=== PATIENT | male | born 2000 ===

== ENCOUNTER 2024-11-16 13:37 | Emergency (ER) | payer SELFPAY ==
[2024-11-16 13:43] VITALS: BP 141/92
--- NOTE | 2024-11-16 14:25 | ED.GENMED ---
History of Present Illness
General
Chief Complaint: Musculo-Skeletal Complaint
Source: patient
Exam Limitations: none
Time Seen by Provider: 11/16/24 14:06
Nursing documentation reviewed up to this point in time: agreed with
History of Present Illness
History of Present Illness:
Patient is a 24-year-old male who is [id number] who punched a wall with his right hand yesterday. He does complain of pain. He denies any other injuries.
Review of Systems
Review of Systems
Allergies reviewed?: Yes
All Other Systems: ROS reviewed and negative except as documented in HPI and ROS
Constitutional: Reports no symptoms
Musculoskeletal: Reports other (Right hand pain)
Skin: Reports no symptoms
Psychiatric: Reports no symptoms
Phy Exam
General Physical Exam
General Presentation: no apparent distress
General age: appears stated age
General Skin: warm and dry
General Habitus: normal
General Mental: alert
General Hydration: appears well hydrated
Neurological Exam
Neurological Exam: alert and oriented x3
Musculoskeletal Exam
Musculoskeletal Exam: other (Right upper extremity strong pulses patient with tenderness and swelling to distal fifth metacarpal carpal normal distal sensation normal cap refill)
Skin Exam
Skin Exam: normal color and warm/dry
Psychiatric Exam
Psychiatric Exam: normal mood/affect
Course
Orders/Labs/Results
Orders:
Orders
11/16/24 13:46
Hand, Right 3 View [CR Hand - Right Min 3 Views] Urgent
Comment:
Reason For Exam: pain, swelling, trauma
11/16/24 14:31
Sling Right-Treatment ONCE
Splints/Slings/Crut- Treatment ONCE
Location: Right
Type of Splint: Ulnar Gutter
11/16/24 14:39
Vital Signs- Treatment ONCE
Frequency: Once
Vital Signs
Initial and Last Documented VS:
Initial Vital Signs
Temp Pulse Resp BP Pulse Ox
98.1 F 61 16 141/92 99
11/16/24 13:43 11/16/24 13:43 11/16/24 13:43 11/16/24 13:43 11/16/24 13:43
Last Documented Vital Signs
Temp Pulse Resp BP Pulse Ox
98.1 F 61 16 141/92 99
11/16/24 13:43 11/16/24 13:43 11/16/24 13:43 11/16/24 13:43 11/16/24 13:43
Procedures
Splint Check
Splint checked by provider?: Yes
Circulation/Movement/Sensation post splint application: brisk cap refill and full sensation
MDM/Problems Addressed
Differential Diagnosis Includes:
Not limited to contusion, fracture
MDM/Problems Addressed:
Symptoms consistent with boxer's fracture. Patient has a normal neurovascular exam splinted with a gutter splint will DC with Ortho follow-up. Will DC with Motrin Tylenol.
*Radiology
Radiology exam reviewed: other (+ fx to distal 5th mc )
*Critical Care Note
Total Time (30-74mins, 75-104mins- exclusive of procedures): Not Applicable
ED Attending Note
-
Portions of this chart may have been created with voice recognition software.� Occasional wrong word or��sound alike� substitutions may have occurred due to the inherent limitations of voice recognition software.
Discharge Plan
Departure
Patient Disposition: Home (Routine Discharge)
Date of Disposition: 11/16/24
Time of Disposition: 14:34
Patient with high blood pressure during this ER visit?: Yes
Condition: Fair
Covid-19: Not Applicable
Discharge Problem:
Fracture of hand
Instructions: Hand Fracture ED
Prescriptions:
No Action
ranitidine HCl [Zantac 75] 75 MG tablet
75 mg PO DAILY Qty: 20 0RF
diphenhydramine HCl [Banophen] 25 MG capsule
25 mg PO Q4HPRN PRN (Reason: rash, itching) Qty: 10 0RF
prednisone 50 MG tablet
50 mg PO DAILY Qty: 5 0RF
albuterol sulfate [Albuterol Sulfate HFA] 18 GM HFA aerosol inhaler
18 gm inhalation Q4 Qty: 1 0RF
Referrals:
Antoine Flores MD [Active] -
Activity Restrictions/Additional Instructions:
As discussed wear splint until you are seen and evaluated by orthopedics. Do not wet splint.
Keep elevated as much as possible. Ice over affected area for the next 24 hours 20 minutes at a time several times a day. Follow-up with orthopedics within the next several days please call morning for an appointment this week. Return
if any worsening of symptoms including increased pain, cold, numb, blue fingers. You may alternate ibuprofen and Tylenol for discomfort
Wear sling for support but remove at night while sleeping
Interventions
Interventions:
*General Assessment Last Done: 11/16/24 14:06
*ED COVID-19 Vaccine History Last Done: 11/16/24 14:06
ED-Musculoskeletal Assessment Last Done: 11/16/24 14:06
Discharge Date and Time
Print Language: MOLDOVAN
== END 2024-11-16 15:24 | disposition home or self-care (01) ==
LOC: EMR 13:37
PROVIDERS: EMERGENCY PHYSICIAN Emergency Medicine
DX: S52.591A Other fractures of lower end of right radius, initial encounter for closed fracture (principal); S62.396A Other fracture of fifth metacarpal bone, right hand, initial encounter for closed fracture; W22.09XA Striking against other stationary object, initial encounter
CPT/HCPCS: 29125; 99283; 73130